=== PATIENT | female | born 1930 | race Caucasian/White ===

== ENCOUNTER → 2016-08-04 | Outpatient (CLI) | payer MEDICARE, OTHER ==
[~2016-08-04] MED LIST: ACETAMINOPHEN500 M1 PO; ASPIRIN EC81 MG PO; ASPIRIN325 MG PO; BETAPACE (GENER80 MG PO; BETOPTIC-S 0.20.25 % OPHTH; BETOPTIC0.5 % OPHTH; CALCIUM600 MG PO; CARAFATE1 GM PO; CELEXA20 MG PO; CENTRUM SILVER1 EAC1 PO; CLARITIN10 MG PO; COLACE100 MG PO; CRESTOR40 MG PO; DETROL LA4 MG PO; KLOR-CON 1010 MEQ PO; LASIX40 MG PO; LOPRESSOR6.25 MG/0. PO; LUBRICANT EYE D10 ML OPHTH; MAGOX 400400 MG PO; METOPROLOL PO; MIRALAX17 GM PO; NITROSTAT 0.40.4 MG PO; NORCO 5-325 TA1 EACH PO; OS-CAL 250 MG+D1 TAB PO; OSCAL + D500 MG PO; PLAVIX75 MG PO; PRILOSEC20 M1 PO; SYSTANE 0.3-0.440 ML OPHTH; ULTRAM50 MG PO; ZESTRIL2.5 MG PO
[2016-08-04 15:01] LABS: CALCIUM 9.2 mg/dL (8.5-10.5); CREATININE 1.1 mg/dL (0.5-1.1)
== END | disposition disaster alternative care site (69) ==
LOC: LNHI 14:36
PROVIDERS: Internal Medicine Cardiovascular Disease
DX: I25.10 Atherosclerotic heart disease of native coronary artery without angina pectoris (principal); I48.0 Paroxysmal atrial fibrillation; I10 Essential (primary) hypertension; E78.2 Mixed hyperlipidemia

== ENCOUNTER → 2016-09-07 | Outpatient (CLI) | payer MEDICARE, OTHER | END | disposition disaster alternative care site (69) | LOC: GRAD 11:30 | DX: M16.11 Unilateral primary osteoarthritis, right hip (principal); M16.0 Bilateral primary osteoarthritis of hip ==

== ENCOUNTER 2016-09-14 09:00 | Inpatient (IN) | payer MEDICARE, OTHER ==
[~2016-09-14] VITALS: Ht 162.6 cm; Wt 68.6 kg
--- NOTE | ~2016-09-14 | OR ---
PATIENT'S NAME: CYRIL BARRETT [facility] AGE: 85 Y [address] ROOM: [address] [address] LOCATION: [facility] ADMIT DATE: 09/29/2016 OR/Procedure Report DISCHARGE DATE: FAMILY PHYSICIAN: MARIO SOLORZANO MD ATTENDING PHYSICIAN: Trent Daniel SURGEON: Trent Daniel MD GIVING OFFICER: MURIEL Perez DATE OF PROCEDURE: 09/29/2016 PREOPERATIVE DIAGNOSIS: Osteoarthritis right hip. POSTOPERATIVE DIAGNOSIS: Osteoarthritis right hip. OPERATION: SAPNA robot assisted right total hip replacement with Gena Accolade high offset stem, #6 with 36-mm +5 metal head and a 50 mm PSL cup without holes and a 36 mm standard poly liner. ANESTHESIA: Subarachnoid block. INDICATIONS: This is an 85-year-old female with clinical and radiographic evidence of osteoarthritis in her right hip with crystal induced arthritis as well. She is considered a candidate for total hip replacement. PROCEDURE: The patient was brought to the operating room, when satisfactory spinal anesthesia had been established, she was transferred to the operating table and placed on her left side with the right side up. The right lower extremity, hip, and hemipelvis were prepped and draped in an aseptic manner. An incision was made over the iliac crest and three Shantz screws were placed to hold the array for the computer and robot. The array was tightened down. The skin and the planned incision site was injected with Kalyan mix. An incision was made and carried down through the subcutaneous fat. A check point was then impacted into the greater trochanter and it was registered. The check point at the distal pole of the patella was also registered. The fascia arnav and fascia of the gluteus pina were divided in line with the skin incision and the short external rotators were exposed and cut and the capsule exposed. The capsule was opened with an upside-down hockey stick- shaped incision and the hip length checked with the computer. The pelvic check point was also placed. The hip was dislocated and the piriformis fossa cleared out. The neck was cut about a fingerbreadth proximal to the lesser trochanter and the head removed. A box cut chisel was used to lateralize the neck and the canal was found. Broaching was begun at 1 and carried up to a #6 broach which appeared to fit satisfactorily. The acetabulum was then exposed and soft tissues debrided. The acetabulum was then registered and the robot brought in and reaming performed with the pre-decided 40 degrees of inclination and 25 degrees of anteversion. The reamer bottomed out and a PATIENT'S NAME: CYRIL BARRETT [facility] AGE: 85 Y [address] ROOM: [place] [address] LOCATION: [facility] ADMIT DATE: 09/29/2016 OR/Procedure Report DISCHARGE DATE: FAMILY PHYSICIAN: MARIO SOLORZANO MD ATTENDING PHYSICIAN: Trent Daniel trial 50 cup was placed and it seemed to bottom out and have some open hearth laborer of the non-holed. PSL cup was then impacted home using the robot to position the cup and the cup bottomed out nicely and it could not be dislodged. A trial reduction was performed with the high-offset neck, and the +0 head. The hip was a little short and offset was decreased. So the #5 trial was placed and the length was about a millimeter long compared to preop and offset was 4 mm decreased from the preop hip. The trials were removed. The manhole cover was screwed into the cup and the definitive liner impacted home. The #6 broach was removed and the size 6 Accolade 2 high offset stem impacted home. The trial +5 head was placed and the hip reduced. The length was checked as well as the offset and it was essentially identical to the preoperative planning. The hip was stable at 90 degrees of flexion with 0 degrees of adduction, and 60 degrees of internal rotation. Distal shuck was close to 2 cm but lateral shuck was maybe 5 mm. The hip was stable in extension with external rotation and abduction and adduction. The trial head was removed and the definitive +5 x 36 mm head was impacted onto the trunnion. The wound was irrigated copiously with saline and at this point, the greater trochanter was found to be fractured through the checkpoint. The checkpoint and greater trochanter was removed and a checkpoint in the pelvis was removed. The cable financial reserve clerk system by [place] was opened and the cable financial reserve clerk positioned and the 2 cables passed around the lesser trochanter and then through the financial reserve clerk. The financial reserve clerk was impacted home and the 2 cables tightened to 100 foot-pounds of tension. The crimper was then used to crimp the tunnel through which the cables passed and the cables were cut. The trochanter seemed to be stable at this point. The wound was irrigated copiously with saline and multiple layers injected with Kalyan mix. The capsule was closed with interrupted #2 Orthocord. The piriformis was repaired to the gluteus medius with modified Main stitch and #2 Orthocord. The fascia arnav was closed with a running #1 Vicryl. The remainder of the closure was by MURIEL Rodriguez, who closed the gluteus pina fascia with a running #1 Vicryl, subcutaneous fat with a running 2-0 Vicryl, skin with skin berenice. For the pelvic wound at the ilium for the array, was closed by MURIEL Rodriguez, with interrupted 2-0 Vicryl for the subcutaneous fat and skin berenice for the skin. Dressings were applied and the patient sent to the recovery area, having tolerated the procedure well. MD ÓSCAR COUGHLIN/osvaldo /[id number] d: 09/29/16 1416 t: 10/08/16 1648, OPERATIVE SUMMARY
--- NOTE | ~2016-09-14 | DS ---
PATIENT'S NAME: CYRIL BARRETT [facility] AGE: 85 Y [address] ROOM: [place] [address] LOCATION: [facility] ADMIT DATE: 09/29/2016 Discharge Summary DISCHARGE DATE: 10/02/2016 FAMILY PHYSICIAN: Miles Schafer MD ATTENDING PHYSICIAN: Trent Camara ADMITTING DIAGNOSIS: Right hip degenerative joint disease. PROCEDURE PERFORMED: Right total hip arthroplasty. COMORBIDITIES: 1. Spinal stenosis. 2. Osteoporosis. 3. Coronary artery disease. 4. Congestive failure. HOSPITAL COURSE: The patient was admitted with end-stage OA of the hip. She was taken to the Operating Room, spinal anesthetic, and the right total hip arthroplasty was performed with a PSL cup of size 50, 36 head, +5 X3, 36 liner, and a size 6 high-offset Accolade II stem were placed. Intraoperatively, she got TXA. Postoperatively, Dilaudid was started for breakthrough pain. Enteric-coated aspirin 325 p.o. daily for thirty days was started, as well as Prilosec while on the duration of her aspirin, stop date for the aspirin is 10/29/2016. Her preoperative medications were resumed after surgery. Postoperative visit hemoglobin was 10.5. Vitals were normal. Neurovascular was intact to the operative right leg. PT was started. Arrangements were made for patient to be discharged to home. DISCHARGE INSTRUCTIONS: Mepilex on until followup visit. Follow up with Dr. Camara in 6 to 12 days. Hip dislocation precautions. DISCHARGE MEDICATIONS: Continue pre-hospitalization medication regimen with the following additions of 1. Aspirin 325 p.o. daily, stop date 10/29/2016, then may resume 81 mg aspirin. 2. She may discontinue Prilosec at the completion of her adult aspirin therapy. 3. Prescriptions were written for [place] 5/325 one to two p.o. q.4 hours p.r.n. pain, dispensed 60. MURIEL MCCAIN FOR TRENT CAMARA MD PATIENT'S NAME: CYRIL BARRETT [facility] AGE: 85 Y [address] ROOM: [address] [address] LOCATION: [facility] ADMIT DATE: 09/29/2016 Discharge Summary DISCHARGE DATE: 10/02/2016 FAMILY PHYSICIAN: Miles Schafer MD ATTENDING PHYSICIAN: Trent Camara/osvaldo /[id number] d: 10/07/16 0350 t: 10/13/16 0941, DISCHARGE SUMMARY
[~2016-09-14 09:00] MED LIST changes: -ASPIRIN325 MG PO; -CALCIUM600 MG PO; -COLACE100 MG PO; -MIRALAX17 GM PO; -NORCO 5-325 TA1 EACH PO; -OSCAL + D500 MG PO; -ULTRAM50 MG PO
[2016-09-14] MEDS ORDERED: OSCAL + D500 MG PO (09:38)
[2016-09-14] MEDS ORDERED: CALCIUM600 MG PO (09:39)
[2016-09-14] MEDS ORDERED: CRESTOR40 MG PO (09:40)
[2016-09-14] MEDS ORDERED: ULTRAM50 MG PO (09:45)
[2016-09-14] MEDS ORDERED: DETROL LA4 MG PO (09:56)
--- NOTE | 2016-09-29 14:10 | NUR ---
Introduced self/role to patient and her children, she lives independently in [place]. Her daughter Chrissy recently retired, was an RN. Will be available to assist as needed. They have all the DME they feel like they will need. Did a test run at her home yesterday with her walker to make sure she can get thru all the doorways. Did talk about HHC. Left it with family that I will not make that referral unless they let me know to do so. At this point do not really feel it will be needed. Added my name to her marker board, will continue to follow.
--- NOTE | 2016-09-29 18:45 | NUR ---
patient returned at 1145. csm adequate. up to chair x 1. voided x 1 on bsc. norco at 1600, and 1810. dilaudid 0.2 mg iv x 2 last dose at 1700. mepilex dressings d/i to right hip and right anterior hip. on room air.
--- NOTE | 2016-09-30 03:49 | NUR ---
Shift Summary: Patient can ambulate with one assist. DO NOT GIVE IV DILADID. It makes her confused and paranoid. Having good pain control with one norco at a time. Changed both mepilex dressings for saturated bloody drainage. Patient tolerating regular diet well. Voiding without difficulty. Numbness to both big toes, fingers to right hand.
[2016-09-30 06:00] LABS: HEMATOCRIT 31.3 % (30.0-46.0); HEMOGLOBIN 10.1 g/dL (10.0-15.0)
--- NOTE | 2016-09-30 17:09 | NUR ---
Significant Event: PT ALERT AND ORIENTED. UP WITH 1 ASSIST TO THE BATHROOM AND TO THE RECLINER. TAKES NORCO FOR PAIN LAST AT 1356. DRESSING TO RT HIP CHANGED THIS AM. PT WILL BE DIWSCHARGED TO HOME TOMORROW AND HER DAUGHTER WILL STAY WITH HER. Follow up:
--- NOTE | 2016-10-01 04:14 | NUR ---
Patient is alert and oriented x3, very pleasant and cooperative, csm with in normal limits, dressing has a small amount of bloody drainage that is marked, ambulates slowly one assist with walker and gaitbelt, taking Narco for pain control, plans to go home today
--- NOTE | 2016-10-01 16:51 | NUR ---
Significant Event: A/O. CSM GOOD IN LEFT LEG, MEPILEX DRSG TO RIGHT HIP D/I DRSG CHANNGED BY Mariella LLAMAS, BUT DOES NOT NEED TO BE CHANGED AGAIN, HAD NORCO 1 TAB AT 1130. HAD SMALL BM TODAY. PLANINGG ON DISMISSAL TUESDAY...ABLE TO WALK WITH 1 ASSIST AND WALKER... Follow up:
--- NOTE | 2016-10-02 04:08 | NUR ---
Patient alert and oriented x3, very pleasant and coopertive, csm with in normal limits, dressing clean dry and intact, pain has been well under control, has rested well, ambulates one assist with walker and gaitbelt to the bathroom, ice in place to hip, plans to go home today
[2016-10-02] MEDS ORDERED: ASPIRIN325 MG PO (11:32)
[2016-10-02] MEDS ORDERED: COLACE100 MG PO (11:36)
[2016-10-02] MEDS ORDERED: MIRALAX17 GM PO (11:39)
[2016-10-02] MEDS ORDERED: NORCO 5-325 TA1 EACH PO (11:44)
--- NOTE | 2016-10-02 13:16 | NUR ---
pt and her daughter given discharge instructions and voices understanding. medications and dressings reviewed. shelbie instruction sheets given to pt. escorted to the front door by transport staff. bebeto at pt's side.
== END 2016-10-02 12:30 | disposition disaster alternative care site (69) | DRG 470 ==
LOC: G3N 09-29 05:52 → GMSU 10-01 17:50
PROVIDERS: ADMIT Orthopaedic Surgery
PROC: 8E0YXBZ Computer Assisted Procedure of Lower Extremity (ICD-10-PCS; principal; 2016-09-29)
PROC: 0SR901A Replacement of Right Hip Joint with Metal Synthetic Substitute, Uncemented, Open Approach (ICD-10-PCS; principal; 2016-09-29)
DX: M16.11 Unilateral primary osteoarthritis, right hip (principal); I10 Essential (primary) hypertension; I25.10 Atherosclerotic heart disease of native coronary artery without angina pectoris
CPT/HCPCS: C1713; C1776; J0171; J0690; J0735; J1170; J1720; J1885; J2001; J2795; J7030; J7040

== ENCOUNTER → 2016-09-16 | Outpatient (CLI) | payer MEDICARE, OTHER ==
[~2016-09-16] MED LIST changes: +ASPIRIN325 MG PO; +CALCIUM600 MG PO; +COLACE100 MG PO; +MIRALAX17 GM PO; +NORCO 5-325 TA1 EACH PO; +OSCAL + D500 MG PO; +ULTRAM50 MG PO
== END | disposition disaster alternative care site (69) ==
LOC: GNJRC 10:40
DX: Z01.812 Encounter for preprocedural laboratory examination (principal)